=== PATIENT | male | born 1980 | race Caucasian/White ===

== ENCOUNTER 2020-09-30 13:09 | Emergency (ER) | payer BC ==
[~2020-09-30] VITALS: Ht 182.9 cm; Wt 71.6 kg
[2020-09-30 13:43] LABS: BASOPHILS % (AUTO) 0.2 % (0-1); EOSINOPHILS % (AUTO) 0 % (0-6); HEMATOCRIT 46.7 % (42.0-52.0); HEMOGLOBIN 15.8 g/dl (14.0-17.9); LYMPHOCYTES # (AUTO) 0.7 X10'3 (1.1-4.8); LYMPHOCYTES % (AUTO) 10.7 % (21-51); MEAN CORPUSCULAR HEMOGLOBIN 30.5 PG (27.0-31.0); MEAN CORPUSCULAR HGB CONC 33.9 g/dL (33.0-36.5); MEAN PLATELET VOLUME 7.7 FL (7.4-10.4); MONOCYTES # (AUTO) 0.5 X10'3 (0-0.9); NEUTROPHILS # (AUTO) 5.7 X10'3 (1.8-7.7); NEUTROPHILS % (AUTO) 82.1 % (42-75); PLATELET COUNT 256 X10'3 (140-440); RED BLOOD COUNT 5.18 X10'6 (4.70-6.10); RED CELL DISTRIBUTION WIDTH 12.6 % (11.5-14.5)
[2020-09-30 13:49] LABS: ALANINE AMINOTRANSFERASE 40 U/L (12-78); ALBUMIN 4.5 G/DL (3.4-5.0); ALBUMIN/GLOBULIN RATIO 1.2 (1.1-1.5); ALKALINE PHOSPHATASE 57 IU/L (46-116); ANION GAP 13 (8-16); ASPARTATE AMINO TRANSFERASE 32 U/L (10-37); BILIRUBIN,TOTAL 0.4 MG/DL (0.1-1.0); BLOOD UREA NITROGEN 16 MG/DL (7-18); BUN/CREATININE RATIO 13.8 (5.4-32.0); CALCIUM 9.1 MG/DL (8.5-10.1); CHLORIDE 103 MMOL/L (99-107); CREATININE 1.16 MG/DL (0.60-1.10); GLUCOSE 153 MG/DL (70-104); POTASSIUM 3.5 MMOL/L (3.5-5.1); SODIUM 140 MMOL/L (135-145); TOTAL CARBON DIOXIDE 24.5 MMOL/L (24-32); TOTAL PROTEIN 8.4 G/DL (6.4-8.2); eGFR 69 ML/MIN
[2020-09-30 14:50] VITALS: BP 124/93
== END 2020-09-30 14:55 | disposition home or self-care (01) ==
LOC: ER 13:10
DX: R07.89 Other chest pain (principal); E78.00 Pure hypercholesterolemia, unspecified; F41.9 Anxiety disorder, unspecified; Z72.89 Other problems related to lifestyle
CPT/HCPCS: 36415; 71045; 80053; 83880; 84484; 85025; 93005; 99285

== ENCOUNTER 2024-08-07 05:50 | Inpatient (IN) | payer BC ==
[2024-08-04 13:04] VITALS: PULSE 78; RESP 16; O2SAT 99
[2024-08-04 13:58] LABS: BASOPHILS % (AUTO) 0.3 % (0-1); EOSINOPHILS % (AUTO) 0.5 % (0-6); LYMPHOCYTES # (AUTO) 0.9 X10'3 (1.1-4.8); MEAN CORPUSCULAR HEMOGLOBIN 30.6 PG (27.0-31.0); MEAN CORPUSCULAR HGB CONC 34.5 g/dL (33.0-36.5); MEAN CORPUSCULAR VOLUME 88.9 FL (78-98); MEAN PLATELET VOLUME 7.3 FL (7.4-10.4); MONOCYTES # (AUTO) 0.4 X10'3 (0-0.9); MONOCYTES % (AUTO) 7.6 % (2-12); NEUTROPHILS # (AUTO) 4.2 X10'3 (1.8-7.7); NEUTROPHILS % (AUTO) 75.6 % (42-75); PRE OP HEMATOCRIT 46.5 % (42.0-52.0); PRE OP PLATELET COUNT 273 X10'3 (140-440); PRE OP WHITE BLOOD COUNT 5.5 10'3 (4.8-10.8); RED BLOOD COUNT 5.23 X10'6 (4.70-6.10); RED CELL DISTRIBUTION WIDTH 12.6 % (11.5-14.5)
[2024-08-04 14:01] LABS: BILIRUBIN,URINE NEGATIVE (Neg); CLARITY,URINE CLEAR (Clear); COLOR,URINE YELLOW (Yellow); GLUCOSE, URINE NEGATIVE (Neg); KETONES,URINE NEGATIVE (Neg); LEUKOCYTE ESTERASE ,URINE NEGATIVE (Neg); NITRITES, URINE NEGATIVE (Neg); OCCULT BLOOD,URINE NEGATIVE (Neg); PROTEIN,URINE NEGATIVE (Neg); UROBILINOGEN,URINE 0.2 E.U/dL (0.2-1.0)
[2024-08-04 14:06] LABS: UA COLLECTION TYPE NON-SPECIFIED
[2024-08-04 14:07] LABS: PRE OP PROTIME 10.7 SECONDS (9.0-12.0)
[2024-08-04 14:13] LABS: HEMOGLOBIN A1C 5.5 % (4.5-6.2)
[2024-08-04 14:15] LABS: ALBUMIN 4.4 G/DL (3.4-5.0); ALBUMIN/GLOBULIN RATIO 1.3 (1.1-1.5); ALKALINE PHOSPHATASE 45 IU/L (46-116); BLOOD UREA NITROGEN 22 MG/DL (7-18); BUN/CREATININE RATIO 19.8 (10.0-20.0); CALCIUM 9.3 MG/DL (8.5-10.1); CHLORIDE 102 MMOL/L (99-107); CREATININE 1.11 MG/DL (0.60-1.10); PRE OP ALT 28 U/L (30-65); PRE OP ANION GAP 7 (8-16); PRE OP AST 23 U/L (10-37); PRE OP BILIRUB, TOTAL 0.4 MG/DL (0.0-1.0); PRE OP GLUCOSE 99 MG/DL (70-104); PRE OP SODIUM 136 MMOL/L (135-145); TOTAL CARBON DIOXIDE 27.4 MMOL/L (24-32); TOTAL PROTEIN 7.8 G/DL (6.4-8.2); eGFR 71 ML/MIN
[2024-08-04 15:45] LABS: ABG BASE EXCESS -1.9 mmol/L (-2.0-3.0); ABG HCO3 20.9 mmol/L (21.0-28.0); ABG OXYGEN SATURATION 98.2 % (94.0-98.0); ABG PCO2 (T) 31.1 mmHg (35.0-48.0); ABG PH (T) 7.446 (7.350-7.450); ABG PO2 (T) 113.4 mmHg (83.0-108.0); ALLEN'S TEST POSITIVE; FCOHb 0.3 % (0.5-1.5); FHHb 1.8 % (0.0-5.0); FMetHb 0.1 % (0.0-1.5); FO2Hb 97.8 % (94.0-98.0); TOTAL HEMOGLOBIN 16.1 G/dl (13.5-17.5)
[2024-08-07] VITALS (23 sets, daily range): BP systolic 104–150; BP diastolic 56–89; PULSE 67–98; RESP 11–16; TEMP 98.2; O2SAT 96–100
[~2024-08-07] VITALS: Ht 182.9 cm; Wt 74.7 kg
[~2024-08-07 05:50] MED LIST: AZEL137S4 BOTHNARES; FLUT16SP BOTHNARES; HYDR-3686 PO; IVER3TAB PO; Insulin Reg/NS 100units/100mL 100 ML IV SCH; LORA10CA PO; METO25CA PO; OMEG100037 PO; TERB250T89 PO; ZINC30CA PO; [UNRECOGNIZED DRUG - CODE] PO; dextrose 50%-water 50ml dispensing syringe IV PRN; insulin glargine (Lantus) pen - multi-dose SQ PRN
[2024-08-07] MEDS ORDERED: epiNEPHrine 1 mg/ml inj ONE (06:46)
[2024-08-07] MEDS ORDERED: vancomycin 1,000mg inj ONE (06:46)
[2024-08-07] MEDS ORDERED: ceFAZolin 1000mg inj ONE (06:46)
[2024-08-07] MEDS: ceFAZolin 1000mg inj IR ONE (06:50)
[2024-08-07] MEDS: metoprolol tartrate 12.5mg (1/2 tablet) PO ONE (07:14)
[2024-08-07] MEDS: VANCOMYCIN/H2O 1.5g/300mL PB 300 ML IV ONE (07:15)
[2024-08-07] MEDS: mupirocin 2% nasal ointment 1gm UD NS ONE (07:15)
[2024-08-07] MEDS: DOCUMENT DATE & TIME OF BETA-BLOCKER PO ONE (07:15)
[2024-08-07] MEDS: ringers solution, lacted 1,000 ML IV SCH (07:15)
[2024-08-07] MEDS: famotidine 20mg tablet PO ONE (07:16)
[2024-08-07] MEDS: ceFAZolin 2gm in dextrose, iso 50 ML IV ONE (07:16)
[2024-08-07] MEDS ORDERED: propofol inj 20 ML IV ONE (08:03)
[2024-08-07] MEDS ORDERED: rocuronium 10mg/ml inj IV ONE ×2 (08:03)
[2024-08-07] MEDS ORDERED: MIDAZolam 1 MG/ML 5ML VIAL ONE (08:05)
[2024-08-07] MEDS ORDERED: SUfentanil 50mcg/ml 1ml amp IV ONE (08:07)
[2024-08-07] MEDS ORDERED: ePHEDrine 50MG/ML INJ. ONE (08:07)
[2024-08-07] MEDS ORDERED: sevoflurane 250ml liquid IH ONE (08:11)
[2024-08-07] MEDS: LORazepam 2 mg/ml vial IV PRN (08:11)
[2024-08-07 09:03] LABS: ABG BASE EXCESS -0.8 mmol/L (-2.0-3.0); ABG HCO3 21.2 mmol/L (21.0-28.0); ABG OXYGEN SATURATION 99.5 % (94.0-98.0); ABG PCO2 28.3 mmHg (35.0-48.0); ABG PH 7.493 (7.350-7.450); ABG PO2 338.9 mmHg (83.0-108.0); CL (ABG) 103 mmol/L (98-107); FCOHb 0.3 % (0.5-1.5); FHHb 0.5 % (0.0-5.0); FMetHb 0.2 % (0.0-1.5); GLUCOSE (ABG) 112 mg/dl (65-95); IONIZED CA (ABG) 1.15 mmol/L (1.15-1.33); K (ABG) 3.8 mmol/L (3.40-4.50); TOTAL HEMOGLOBIN 14.3 G/dl (13.5-17.5)
[2024-08-07 09:39] LABS: ABG BASE EXCESS VENOUS -0.8 mmol/L (-2.0-3.0); ABG HCO3 VENOUS 24.1 mmol/L (22.0-29.0); ABG OXYGEN SATURATION VENOUS 84.2 % (60.0-85.0); ABG PCO2 VENOUS 40.5 mmHg (38.0-54.0); ABG PH (VENOUS) 7.392 (7.320-7.430); ABG PO2 VENOUS 47.9 mmHg (23.0-48.0); CL (ABG) 99 mmol/L (98-107); FCOHb VENOUS 0.3 % (0.5-1.5); FHHb VENOUS 15.7 %; FMetHb VENOUS 0.1 % (0.5-1.5); FO2Hb VENOUS 83.9 % (0-80.0); GLUCOSE (ABG) 95 mg/dl (65-95); IONIZED CA (ABG) 0.96 mmol/L (1.15-1.33); K (ABG) 4.4 mmol/L (3.40-4.50); TOTAL HEMOGLOBIN 10.5 G/dl (13.5-17.5)
[2024-08-07 09:50] LABS: ABG BASE EXCESS -0.1 mmol/L (-2.0-3.0); ABG HCO3 24.4 mmol/L (21.0-28.0); ABG OXYGEN SATURATION 99.3 % (94.0-98.0); ABG PCO2 39.5 mmHg (35.0-48.0); ABG PH 7.409 (7.350-7.450); ABG PO2 424.8 mmHg (83.0-108.0); CL (ABG) 101 mmol/L (98-107); FCOHb 0.2 % (0.5-1.5); FHHb 0.7 % (0.0-5.0); FMetHb 0.3 % (0.0-1.5); FO2Hb 98.8 % (94.0-98.0); GLUCOSE (ABG) 97 mg/dl (65-95); K (ABG) 4.7 mmol/L (3.40-4.50)
[2024-08-07 10:17] LABS: ABG OXYGEN SATURATION 99.2 % (94.0-98.0); ABG PCO2 39.9 mmHg (35.0-48.0); ABG PH 7.378 (7.350-7.450); CL (ABG) 101 mmol/L (98-107); FCOHb 0.3 % (0.5-1.5); FHHb 0.8 % (0.0-5.0); FO2Hb 98.9 % (94.0-98.0); GLUCOSE (ABG) 136 mg/dl (65-95); IONIZED CA (ABG) 1.04 mmol/L (1.15-1.33); K (ABG) 4.4 mmol/L (3.40-4.50); TOTAL HEMOGLOBIN 11.8 G/dl (13.5-17.5)
[2024-08-07 10:45] LABS: ABG BASE EXCESS VENOUS -0.1 mmol/L (-2.0-3.0); ABG HCO3 VENOUS 24.8 mmol/L (22.0-29.0); ABG OXYGEN SATURATION VENOUS 85.2 % (60.0-85.0); ABG PCO2 VENOUS 41.3 mmHg (38.0-54.0); ABG PH (VENOUS) 7.396 (7.320-7.430); ABG PO2 VENOUS 49.8 mmHg (23.0-48.0); CL (ABG) 102 mmol/L (98-107); FCOHb VENOUS 0.3 % (0.5-1.5); FHHb VENOUS 14.7 %; FMetHb VENOUS 0.3 % (0.5-1.5); FO2Hb VENOUS 84.7 % (0-80.0); GLUCOSE (ABG) 137 mg/dl (65-95); IONIZED CA (ABG) 1.27 mmol/L (1.15-1.33); K (ABG) 4.4 mmol/L (3.40-4.50); TOTAL HEMOGLOBIN 11.3 G/dl (13.5-17.5)
[2024-08-07 10:48] LABS: ACTIVATED CLOTTING TIME 113 SEC (101-148)
[2024-08-07] MEDS ORDERED: Neutra Phos packet PO PRN (11:00)
[2024-08-07] MEDS ORDERED: potassium Cl 20 mEq SR tablet PO PRN (11:00)
[2024-08-07] MEDS ORDERED: insulin glargine (Lantus) pen - multi-dose SQ PRN (11:00)
[2024-08-07] MEDS ORDERED: magnesium sulf-water 2g/50mL 50 ML IV PRN (11:00)
[2024-08-07] MEDS ORDERED: dextrose 50%-water 50ml dispensing syringe IV PRN (11:00)
[2024-08-07] MEDS: Insulin Reg/NS 100units/100mL 100 ML IV SCH (11:00)
[2024-08-07] MEDS ORDERED: potassium Cl 20mEq/100mL bag 100 ML IV PRN (11:00)
[2024-08-07] MEDS ORDERED: sodium phosphate inj. 30 MMOL in dextrose 5%-water 250 ML IV PRN (11:00)
[2024-08-07] MEDS ORDERED: potassium CL 10mEq/100ml bag 100 ML IV PRN (11:00)
[2024-08-07] MEDS ORDERED: bisacodyl 10mg suppository rectal RC PRN (11:00)
[2024-08-07] MEDS ORDERED: sodium phosphate inj. 15 MMOL in dextrose 5%-water 250 ML IV PRN (11:00)
[2024-08-07] MEDS: sodium chloride 0.45% 1,000 ML IV SCH (11:00)
[2024-08-07] MEDS ORDERED: mineral oil 133ml enema RC PRN (11:00)
[2024-08-07] MEDS ORDERED: potassium Cl 40MEQ/270ML bag 250 ML IV PRN (11:00)
[2024-08-07] MEDS ORDERED: acetaminophen 325mg tablet PO PRN (11:00)
[2024-08-07] MEDS ORDERED: magnesium hydroxide 30ml (MOM) UD suspension PO PRN (11:00)
[2024-08-07] MEDS: niCARDipine-NS 40mg/200ml IVPB 200 ML IV PRN (11:38)
[2024-08-07] MEDS: morphine 2 MG/ML inj. syringe IV PRN (11:56)
[2024-08-07 12:21] LABS: BASOPHILS % (AUTO) 0.1 % (0-1); EOSINOPHILS % (AUTO) 0.3 % (0-6); HEMATOCRIT 39.1 % (42.0-52.0); HEMOGLOBIN 13.7 g/dl (14.0-17.9); LYMPHOCYTES # (AUTO) 0.5 X10'3 (1.1-4.8); LYMPHOCYTES % (AUTO) 4.1 % (21-51); MEAN CORPUSCULAR HEMOGLOBIN 31.2 PG (27.0-31.0); MEAN CORPUSCULAR HGB CONC 34.9 g/dL (33.0-36.5); MEAN CORPUSCULAR VOLUME 89.4 FL (78-98); MEAN PLATELET VOLUME 7.7 FL (7.4-10.4); MONOCYTES # (AUTO) 0.5 X10'3 (0-0.9); MONOCYTES % (AUTO) 4.9 % (2-12); NEUTROPHILS % (AUTO) 90.6 % (42-75); PLATELET COUNT 127 X10'3 (140-440); RED BLOOD COUNT 4.37 X10'6 (4.70-6.10); RED CELL DISTRIBUTION WIDTH 12.3 % (11.5-14.5)
[2024-08-07 12:25] LABS: ABG BASE EXCESS -4.6 mmol/L (-2.0-3.0); ABG HCO3 18.5 mmol/L (21.0-28.0); ABG OXYGEN SATURATION 99.9 % (94.0-98.0); ABG PCO2 (T) 28.2 mmHg (35.0-48.0); ABG PO2 (T) 339.3 mmHg (83.0-108.0); FCOHb 0.3 % (0.5-1.5); FHHb 0.1 % (0.0-5.0); FMetHb 0.1 % (0.0-1.5); FO2Hb 99.5 % (94.0-98.0); MODE VENT - SIMV; PATIENT TEMPERATURE 36.1; PEEP 5 cm H2O; RESPIRATORY RATE 14 b/min; TIDAL VOLUME 550 mL
[2024-08-07 12:34] LABS: APTT 25 SECONDS (22-32); INR 1.2 INR; PROTHROMBIN TIME 12.6 SECONDS (9.0-12.0)
[2024-08-07 12:40] LABS: ALANINE AMINOTRANSFERASE 24 U/L (12-78); ALBUMIN 3.3 G/DL (3.4-5.0); ALBUMIN/GLOBULIN RATIO 1.7 (1.1-1.5); ALKALINE PHOSPHATASE 28 IU/L (46-116); ANION GAP 10 (8-16); ASPARTATE AMINO TRANSFERASE 28 U/L (10-37); BILIRUBIN,TOTAL 0.5 MG/DL (0.1-1.0); BLOOD UREA NITROGEN 15 MG/DL (7-18); BUN/CREATININE RATIO 17.6 (10.0-20.0); CALCIUM 8.4 MG/DL (8.5-10.1); CHLORIDE 106 MMOL/L (99-107); CREATININE 0.85 MG/DL (0.60-1.10); GLUCOSE 127 MG/DL (70-104); POTASSIUM 4.2 MMOL/L (3.5-5.1); SODIUM 141 MMOL/L (135-145); TOTAL CARBON DIOXIDE 24.8 MMOL/L (24-32); TOTAL PROTEIN 5.3 G/DL (6.4-8.2); eCRCL 113 ML/MIN; eGFR > 90 ML/MIN
[2024-08-07 12:41] LABS: MAGNESIUM 2.8 MG/DL (1.5-2.4); PHOSPHORUS 2.5 MG/DL (2.3-4.5)
[2024-08-07] MEDS: ondansetron/PF 4mg/2ml inj IV PRN (13:32)
[2024-08-07] MEDS: ketorolac trometh 15mg/ml vial 15 MG/ML ML IV SCH (13:47)
[2024-08-07] MEDS: potassium Cl 40MEQ/1/2NS 520ml 520 ML IV PRN (13:59)
[2024-08-07] MEDS: albumin (Human) 5% 250ml 250 ML IV PRN (14:08)
[2024-08-07] MEDS: ceFAZolin/D5W- 1GM premix 50 ML IV SCH (15:54)
[2024-08-07] MEDS: HYDROcodone/acetaminophen 10/325mg tab PO PRN (15:55)
[2024-08-07] MEDS: metoclopramide 5 mg/ml inj IV PRN (17:21)
[2024-08-07] MEDS: morphine 4 MG/ML inj SYRINge IV PRN (17:31)
[2024-08-07 17:57] LABS: BASOPHILS % (AUTO) 0 % (0-1); EOSINOPHILS % (AUTO) 0 % (0-6); HEMATOCRIT 39.4 % (42.0-52.0); HEMOGLOBIN 13.3 g/dl (14.0-17.9); LYMPHOCYTES # (AUTO) 0.2 X10'3 (1.1-4.8); LYMPHOCYTES % (AUTO) 0.9 % (21-51); MEAN CORPUSCULAR HEMOGLOBIN 30.6 PG (27.0-31.0); MEAN CORPUSCULAR HGB CONC 33.8 g/dL (33.0-36.5); MEAN CORPUSCULAR VOLUME 90.7 FL (78-98); MEAN PLATELET VOLUME 7.5 FL (7.4-10.4); MONOCYTES % (AUTO) 5.1 % (2-12); NEUTROPHILS # (AUTO) 18.1 X10'3 (1.8-7.7); PLATELET COUNT 144 X10'3 (140-440); RED BLOOD COUNT 4.35 X10'6 (4.70-6.10); RED CELL DISTRIBUTION WIDTH 12.5 % (11.5-14.5); WHITE BLOOD COUNT 19.3 X10'3 (4.5-11.0)
[2024-08-07 18:11] LABS: ALBUMIN 3.7 G/DL (3.4-5.0); ANION GAP 11 (8-16); BLOOD UREA NITROGEN 17 MG/DL (7-18); BUN/CREATININE RATIO 14.7 (10.0-20.0); CALCIUM 7.8 MG/DL (8.5-10.1); CHLORIDE 111 MMOL/L (99-107); CREATININE 1.16 MG/DL (0.60-1.10); GLUCOSE 127 MG/DL (70-104); MAGNESIUM 2.2 MG/DL (1.5-2.4); POTASSIUM 4.2 MMOL/L (3.5-5.1); SODIUM 143 MMOL/L (135-145); TOTAL CARBON DIOXIDE 21.5 MMOL/L (24-32); eCRCL 83 ML/MIN; eGFR 68 ML/MIN
[2024-08-07] MEDS: atorvastatin 10mg tablet PO SCH (19:47)
[2024-08-07] MEDS: sennosides/docusate sodium tablet PO SCH (19:47)
[2024-08-07] MEDS: vancomycin/NS 1 GM ADD-VANTAGE 250 ML IV SCH (19:47)
[2024-08-07] MEDS: mupirocin 2% nasal ointment 1gm UD NS SCH (19:47)
[2024-08-08] VITALS (25 sets, daily range): BP systolic 91–168; BP diastolic 56–102; PULSE 80–116; RESP 11–18; TEMP 98.6; O2SAT 95–100
[2024-08-08 02:19] LABS: BASOPHILS % (AUTO) 0.3 % (0-1); EOSINOPHILS % (AUTO) 0 % (0-6); HEMATOCRIT 38.4 % (42.0-52.0); LYMPHOCYTES # (AUTO) 0.5 X10'3 (1.1-4.8); LYMPHOCYTES % (AUTO) 2.8 % (21-51); MEAN CORPUSCULAR HEMOGLOBIN 30.4 PG (27.0-31.0); MEAN CORPUSCULAR HGB CONC 33.8 g/dL (33.0-36.5); MEAN PLATELET VOLUME 7.7 FL (7.4-10.4); MONOCYTES # (AUTO) 1.3 X10'3 (0-0.9); NEUTROPHILS # (AUTO) 14.6 X10'3 (1.8-7.7); NEUTROPHILS % (AUTO) 88.9 % (42-75); PLATELET COUNT 139 X10'3 (140-440); RED BLOOD COUNT 4.27 X10'6 (4.70-6.10); RED CELL DISTRIBUTION WIDTH 12.4 % (11.5-14.5); WHITE BLOOD COUNT 16.4 X10'3 (4.5-11.0)
[2024-08-08 02:34] LABS: ALANINE AMINOTRANSFERASE 32 U/L (12-78); ALBUMIN 3.7 G/DL (3.4-5.0); ALBUMIN/GLOBULIN RATIO 1.6 (1.1-1.5); ALKALINE PHOSPHATASE 30 IU/L (46-116); ANION GAP 11 (8-16); ASPARTATE AMINO TRANSFERASE 44 U/L (10-37); BILIRUBIN,TOTAL 0.4 MG/DL (0.1-1.0); BLOOD UREA NITROGEN 16 MG/DL (7-18); BUN/CREATININE RATIO 16.7 (10.0-20.0); CALCIUM 7.9 MG/DL (8.5-10.1); CHLORIDE 107 MMOL/L (99-107); CREATININE 0.96 MG/DL (0.60-1.10); GLUCOSE 144 MG/DL (70-104); PHOSPHORUS 4.2 MG/DL (2.3-4.5); POTASSIUM 4.8 MMOL/L (3.5-5.1); SODIUM 140 MMOL/L (135-145); eCRCL 100 ML/MIN; eGFR 84 ML/MIN
[2024-08-08] MEDS: HYDROcodone/acetaminophen 10/325mg tab PO PRN (03:53)
[2024-08-08] MEDS: magnesium sulf-water 4G/100mL 100 ML IV PRN (04:59)
[2024-08-08] MEDS: loratadine 10mg tablet PO SCH (07:52)
[2024-08-08] MEDS: metoprolol tartrate 12.5mg (1/2 tablet) PO SCH (07:53)
[2024-08-08] MEDS: terbinafine 250mg tablet PO SCH (07:53)
[2024-08-08] MEDS: aspirin 81mg tab.chew PO SCH (07:54)
[2024-08-08] MEDS: hydrOXYzine 25 MG tablet PO PRN (20:17)
[2024-08-08] MEDS: warfarin 5mg tablet PO ONE (20:18)
[2024-08-08] MEDS: diphenhydrAMINE 25mg capsule PO ONE (21:55)
[2024-08-09] VITALS (19 sets, daily range): BP systolic 109–166; BP diastolic 67–86; PULSE 83–118; RESP 12–19; TEMP 97.1–97.9; O2SAT 95–100
[2024-08-09 04:00] LABS: BASOPHILS # (AUTO) 0.1 X10'3 (0-0.2); BASOPHILS % (AUTO) 0.3 % (0-1); EOSINOPHILS % (AUTO) 0 % (0-6); HEMOGLOBIN 12.9 g/dl (14.0-17.9); LYMPHOCYTES # (AUTO) 0.5 X10'3 (1.1-4.8); LYMPHOCYTES % (AUTO) 2.3 % (21-51); MEAN CORPUSCULAR HEMOGLOBIN 30.5 PG (27.0-31.0); MEAN CORPUSCULAR VOLUME 89.9 FL (78-98); MONOCYTES # (AUTO) 1.4 X10'3 (0-0.9); NEUTROPHILS # (AUTO) 17.6 X10'3 (1.8-7.7); NEUTROPHILS % (AUTO) 90.4 % (42-75); PLATELET COUNT 142 X10'3 (140-440); RED BLOOD COUNT 4.22 X10'6 (4.70-6.10); RED CELL DISTRIBUTION WIDTH 12.9 % (11.5-14.5); WHITE BLOOD COUNT 19.5 X10'3 (4.5-11.0)
[2024-08-09 04:14] LABS: ALBUMIN 3.6 G/DL (3.4-5.0); ANION GAP 6 (8-16); BLOOD UREA NITROGEN 16 MG/DL (7-18); CALCIUM 8.4 MG/DL (8.5-10.1); CHLORIDE 103 MMOL/L (99-107); CREATININE 1.07 MG/DL (0.60-1.10); GLUCOSE 173 MG/DL (70-104); PHOSPHORUS 2.2 MG/DL (2.3-4.5); POTASSIUM 4.6 MMOL/L (3.5-5.1); SODIUM 136 MMOL/L (135-145); TOTAL CARBON DIOXIDE 27.1 MMOL/L (24-32); eCRCL 94 ML/MIN; eGFR 74 ML/MIN
[2024-08-09] MEDS: pantoprazole 40mg Tablet.DR PO SCH (07:36)
[2024-08-09] MEDS ORDERED: potassium Cl 20 mEq SR tablet PO PRN ×2 (08:05)
[2024-08-09] MEDS ORDERED: potassium Cl 40MEQ/1/2NS 520ml 520 ML IV PRN (08:05)
[2024-08-09] MEDS ORDERED: potassium CL 10mEq/100ml bag 100 ML IV PRN (08:05)
[2024-08-09] MEDS ORDERED: magnesium sulf-water 2g/50mL 50 ML IV PRN (08:05)
[2024-08-09] MEDS ORDERED: potassium Cl 20mEq/100mL bag 100 ML IV PRN (08:05)
[2024-08-09] MEDS ORDERED: potassium Cl 40MEQ/270ML bag 250 ML IV PRN (08:05)
[2024-08-09] MEDS: metoprolol tartrate 25mg tablet PO SCH (08:18)
[2024-08-09] MEDS: acetaminophen 325mg tablet PO PRN (08:52)
[2024-08-09 13:38] LABS: PROTHROMBIN TIME 10.9 SECONDS (9.0-12.0)
[2024-08-09] MEDS: traZODone 50mg tablet PO SCH (20:04)
[2024-08-09] MEDS: magnesium Cl slow-release 64mg tablet PO SCH (20:04)
[2024-08-09] MEDS: hydrOXYzine 25 MG tablet PO ONE (21:20)
[2024-08-10 02:00] VITALS: BP 106/66; PULSE 80; RESP 17; TEMP 97.5; O2SAT 99
[2024-08-10 07:00] VITALS: BP 112/67; PULSE 79; RESP 17; TEMP 97.6; O2SAT 98
[2024-08-10 07:34] LABS: BASOPHILS % (AUTO) 0.2 % (0-1); EOSINOPHILS % (AUTO) 0.1 % (0-6); HEMATOCRIT 37.8 % (42.0-52.0); LYMPHOCYTES # (AUTO) 0.7 X10'3 (1.1-4.8); LYMPHOCYTES % (AUTO) 7.9 % (21-51); MEAN CORPUSCULAR HGB CONC 34.4 g/dL (33.0-36.5); MEAN CORPUSCULAR VOLUME 90.1 FL (78-98); MEAN PLATELET VOLUME 8.2 FL (7.4-10.4); MONOCYTES # (AUTO) 0.9 X10'3 (0-0.9); MONOCYTES % (AUTO) 9.6 % (2-12); NEUTROPHILS # (AUTO) 7.7 X10'3 (1.8-7.7); NEUTROPHILS % (AUTO) 82.2 % (42-75); PLATELET COUNT 123 X10'3 (140-440); RED BLOOD COUNT 4.19 X10'6 (4.70-6.10); RED CELL DISTRIBUTION WIDTH 12.3 % (11.5-14.5); WHITE BLOOD COUNT 9.3 X10'3 (4.5-11.0)
[2024-08-10 07:44] LABS: PROTHROMBIN TIME 10.9 SECONDS (9.0-12.0)
[2024-08-10 07:54] LABS: ALBUMIN 3.2 G/DL (3.4-5.0); ANION GAP 5 (8-16); BLOOD UREA NITROGEN 17 MG/DL (7-18); BUN/CREATININE RATIO 17.9 (10.0-20.0); CALCIUM 8.6 MG/DL (8.5-10.1); CHLORIDE 106 MMOL/L (99-107); CREATININE 0.95 MG/DL (0.60-1.10); GLUCOSE 108 MG/DL (70-104); MAGNESIUM 1.9 MG/DL (1.5-2.4); POTASSIUM 4.1 MMOL/L (3.5-5.1); SODIUM 140 MMOL/L (135-145); TOTAL CARBON DIOXIDE 29.3 MMOL/L (24-32); eCRCL 106 ML/MIN; eGFR 85 ML/MIN
[2024-08-10 08:00] VITALS: RESP 17
[2024-08-10] MEDS: LORazepam 0.5 MG tablet PO PRN (08:13)
[2024-08-10] MEDS: fluticasone nasal spray 16GM bottle NS PRN (10:07)
[2024-08-10] MEDS: warfarin 5mg tablet PO ONE (10:08)
[2024-08-10] MEDS: HYDROcodone/acetaminophen 5mg/325mg tablet PO PRN (16:20)
[2024-08-10 18:00] VITALS: BP 101/64; PULSE 82; RESP 19; TEMP 97.4; O2SAT 98
[2024-08-10 20:00] VITALS: RESP 19; O2SAT 98
[2024-08-10] MEDS: enoxaparin 40mg/0.4ml syringe SUBCUT SCH (21:08)
[2024-08-10 22:00] VITALS: BP 112/71; PULSE 81; RESP 17; TEMP 97.5; O2SAT 97
[2024-08-11] VITALS (7 sets, daily range): BP systolic 95–125; BP diastolic 54–87; PULSE 70–97; RESP 12–21; TEMP 97.2–98.1; O2SAT 97–100
[2024-08-11 08:09] LABS: EOSINOPHILS # (AUTO) 0.1 X10'3 (0-0.9); HEMOGLOBIN 11.6 g/dl (14.0-17.9); LYMPHOCYTES # (AUTO) 1.3 X10'3 (1.1-4.8); MONOCYTES # (AUTO) 0.8 X10'3 (0-0.9)
[2024-08-11 08:12] LABS: BASOPHILS % (AUTO) 0.5 % (0-1); EOSINOPHILS % (AUTO) 0.9 % (0-6); HEMATOCRIT 33.2 % (42.0-52.0); LYMPHOCYTES % (AUTO) 16.7 % (21-51); MEAN CORPUSCULAR HEMOGLOBIN 31.5 PG (27.0-31.0); MEAN CORPUSCULAR HGB CONC 35.1 g/dL (33.0-36.5); MEAN CORPUSCULAR VOLUME 89.8 FL (78-98); MEAN PLATELET VOLUME 8.9 FL (7.4-10.4); MONOCYTES % (AUTO) 10.3 % (2-12); NEUTROPHILS # (AUTO) 5.6 X10'3 (1.8-7.7); NEUTROPHILS % (AUTO) 71.6 % (42-75); PLATELET COUNT 118 X10'3 (140-440); RED CELL DISTRIBUTION WIDTH 12.6 % (11.5-14.5); WHITE BLOOD COUNT 7.8 X10'3 (4.5-11.0)
[2024-08-11 08:22] LABS: INR 1.1 INR; PROTHROMBIN TIME 11.4 SECONDS (9.0-12.0)
[2024-08-11 08:26] LABS: ALBUMIN 2.9 G/DL (3.4-5.0); ANION GAP 7 (8-16); BLOOD UREA NITROGEN 25 MG/DL (7-18); BUN/CREATININE RATIO 26.3 (10.0-20.0); CALCIUM 8.6 MG/DL (8.5-10.1); CHLORIDE 105 MMOL/L (99-107); CREATININE 0.95 MG/DL (0.60-1.10); GLUCOSE 99 MG/DL (70-104); MAGNESIUM 1.9 MG/DL (1.5-2.4); SODIUM 141 MMOL/L (135-145); TOTAL CARBON DIOXIDE 29.2 MMOL/L (24-32); eCRCL 106 ML/MIN; eGFR 85 ML/MIN
[2024-08-11 08:27] LABS: POTASSIUM 4.6 MMOL/L (3.5-5.1)
[2024-08-11] MEDS: warfarin 5mg tablet PO ONE (10:15)
[2024-08-11] MEDS ORDERED: ASPI81TA53 PO (11:38)
[2024-08-11] MEDS ORDERED: HYDR-3964 PO (11:39)
[2024-08-11] MEDS: azelastine Nasal Spray bottle NS PRN (19:13)
[2024-08-12] VITALS (8 sets, daily range): BP systolic 95–114; BP diastolic 50–75; PULSE 73–96; RESP 15–21; TEMP 97.4–98.6; O2SAT 98–100
[2024-08-12 06:19] LABS: BASOPHILS % (AUTO) 0.4 % (0-1); EOSINOPHILS # (AUTO) 0.1 X10'3 (0-0.9); EOSINOPHILS % (AUTO) 2.2 % (0-6); HEMATOCRIT 33.9 % (42.0-52.0); HEMOGLOBIN 11.9 g/dl (14.0-17.9); LYMPHOCYTES % (AUTO) 22.1 % (21-51); MEAN CORPUSCULAR HEMOGLOBIN 31.3 PG (27.0-31.0); MEAN CORPUSCULAR HGB CONC 35.1 g/dL (33.0-36.5); MEAN CORPUSCULAR VOLUME 89.1 FL (78-98); MEAN PLATELET VOLUME 7.7 FL (7.4-10.4); MONOCYTES # (AUTO) 0.5 X10'3 (0-0.9); MONOCYTES % (AUTO) 11.6 % (2-12); NEUTROPHILS % (AUTO) 63.7 % (42-75); PLATELET COUNT 178 X10'3 (140-440); RED BLOOD COUNT 3.81 X10'6 (4.70-6.10); RED CELL DISTRIBUTION WIDTH 12.6 % (11.5-14.5); WHITE BLOOD COUNT 4.7 X10'3 (4.5-11.0)
[2024-08-12 06:33] LABS: INR 1.2 INR; PROTHROMBIN TIME 12.6 SECONDS (9.0-12.0)
[2024-08-12 06:42] LABS: ANION GAP 2 (8-16); BLOOD UREA NITROGEN 23 MG/DL (7-18); BUN/CREATININE RATIO 22.1 (10.0-20.0); CHLORIDE 105 MMOL/L (99-107); CREATININE 1.04 MG/DL (0.60-1.10); GLUCOSE 104 MG/DL (70-104); POTASSIUM 4.5 MMOL/L (3.5-5.1); SODIUM 140 MMOL/L (135-145); TOTAL CARBON DIOXIDE 32.8 MMOL/L (24-32); eCRCL 97 ML/MIN; eGFR 77 ML/MIN
[2024-08-12] MEDS: magnesium sulf-water 4G/100mL 100 ML IV PRN (08:55)
[2024-08-12] MEDS: warfarin 7.5mg tablet PO ONE (21:22)
[2024-08-13] VITALS (8 sets, daily range): BP systolic 93–129; BP diastolic 57–83; PULSE 74–96; RESP 14–18; TEMP 97.5–99.3; O2SAT 98–100
[2024-08-13 06:32] LABS: INR 1.2 INR; PROTHROMBIN TIME 12.5 SECONDS (9.0-12.0)
[2024-08-13 06:37] LABS: ALBUMIN 3.1 G/DL (3.4-5.0); ANION GAP 4 (8-16); BLOOD UREA NITROGEN 24 MG/DL (7-18); BUN/CREATININE RATIO 21.8 (10.0-20.0); CALCIUM 8.7 MG/DL (8.5-10.1); CHLORIDE 103 MMOL/L (99-107); GLUCOSE 99 MG/DL (70-104); POTASSIUM 4.1 MMOL/L (3.5-5.1); SODIUM 139 MMOL/L (135-145); TOTAL CARBON DIOXIDE 31.8 MMOL/L (24-32); eCRCL 90 ML/MIN; eGFR 72 ML/MIN
[2024-08-13] MEDS: warfarin 7.5mg tablet PO ONE (21:20)
[2024-08-14] VITALS (7 sets, daily range): BP systolic 97–118; BP diastolic 61–76; PULSE 71–78; RESP 14–26; TEMP 97.2–98.6; O2SAT 96–100
[2024-08-14 08:02] LABS: INR 1.4 INR; PROTHROMBIN TIME 14.3 SECONDS (9.0-12.0)
[2024-08-14 08:15] LABS: ANION GAP 11 (8-16); BLOOD UREA NITROGEN 21 MG/DL (7-18); BUN/CREATININE RATIO 19.1 (10.0-20.0); CALCIUM 9.5 MG/DL (8.5-10.1); CHLORIDE 102 MMOL/L (99-107); GLUCOSE 101 MG/DL (70-104); POTASSIUM 3.9 MMOL/L (3.5-5.1); SODIUM 139 MMOL/L (135-145); TOTAL CARBON DIOXIDE 26.2 MMOL/L (24-32); eCRCL 86 ML/MIN; eGFR 72 ML/MIN
[2024-08-14] MEDS: warfarin 7.5mg tablet PO ONE (19:54)
[2024-08-15] VITALS (8 sets, daily range): BP systolic 97–118; BP diastolic 66–73; PULSE 69–83; RESP 14–18; TEMP 97–98.9; O2SAT 95–100
[2024-08-15 09:21] LABS: INR 1.7 INR
[2024-08-15 09:24] LABS: ALBUMIN 3.9 G/DL (3.4-5.0); ANION GAP 8 (8-16); BLOOD UREA NITROGEN 25 MG/DL (7-18); BUN/CREATININE RATIO 21.7 (10.0-20.0); CALCIUM 9.2 MG/DL (8.5-10.1); CHLORIDE 103 MMOL/L (99-107); CREATININE 1.15 MG/DL (0.60-1.10); GLUCOSE 90 MG/DL (70-104); POTASSIUM 3.8 MMOL/L (3.5-5.1); SODIUM 139 MMOL/L (135-145); TOTAL CARBON DIOXIDE 28.1 MMOL/L (24-32); eCRCL 82 ML/MIN; eGFR 68 ML/MIN
[2024-08-15 09:51] LABS: PROTHROMBIN TIME 16.7 SECONDS (9.0-12.0)
[2024-08-15] MEDS: warfarin 7.5mg tablet PO ONE (21:16)
[2024-08-16 02:00] VITALS: BP 94/50; PULSE 66; RESP 18; TEMP 97.8; O2SAT 100
[2024-08-16 06:32] LABS: ALBUMIN 3.2 G/DL (3.4-5.0); ANION GAP 5 (8-16); BLOOD UREA NITROGEN 23 MG/DL (7-18); BUN/CREATININE RATIO 22.1 (10.0-20.0); CALCIUM 8.8 MG/DL (8.5-10.1); CHLORIDE 106 MMOL/L (99-107); CREATININE 1.04 MG/DL (0.60-1.10); GLUCOSE 103 MG/DL (70-104); POTASSIUM 4.1 MMOL/L (3.5-5.1); SODIUM 139 MMOL/L (135-145); TOTAL CARBON DIOXIDE 27.6 MMOL/L (24-32); eCRCL 94 ML/MIN; eGFR 77 ML/MIN
[2024-08-16 06:36] LABS: INR 1.8 INR; PROTHROMBIN TIME 17.7 SECONDS (9.0-12.0)
[2024-08-16 08:00] VITALS: BP_SYST 86; PULSE 74; RESP 16; O2SAT 99
[2024-08-16] MEDS ORDERED: WARF7.5T48 PO (09:32)
[2024-08-16 11:18] VITALS: RESP 14
== END 2024-08-16 13:15 | disposition home or self-care (01) | DRG 221 ==
LOC: PAS IN 05:50 → CICU 2S 11:25 → PCU 3S 08-09 13:47
PROVIDERS: ADMIT Thoracic Surgery (Cardiothoracic Vascular Surgery); ATTEND Thoracic Surgery (Cardiothoracic Vascular Surgery)
PROC: 02RF08Z Replacement of Aortic Valve with Zooplastic Tissue, Open Approach (ICD-10-PCS; principal; 2024-08-08)
PROC: B24BZZ4 Ultrasonography of Heart with Aorta, Transesophageal (ICD-10-PCS; 2024-08-08)
PROC: 5A1221Z Performance of Cardiac Output, Continuous (ICD-10-PCS; 2024-08-08)
DX: I35.0 Nonrheumatic aortic (valve) stenosis (principal); F22 Delusional disorders; F32.A Depression, unspecified; G47.30 Sleep apnea, unspecified; F41.0 Panic disorder [episodic paroxysmal anxiety]; G47.00 Insomnia, unspecified; Z79.899 Other long term (current) drug therapy; Z79.01 Long term (current) use of anticoagulants
CPT/HCPCS: 93312; 93325; Z7506; Z7508; 36415; 36600; 71045; 71046; 80048; 80053; 81003; 82330; 82435; 82803; 82947; 82948; 83036; 83735; 84100; 84132; 84295; 85018; 85025; 85347; 85610; 85730; 86885; 86900; 86901; 86920; 87081; 93005; 93970; 94002; 94010; 94668; 94760; 97116; 97162; A4333; A4615; A4618; A6213; A6253; A6258; A6449; A7000; A7048; C1751; G0378; J0171; J0690; J1644; J1650; J1815; J1885; J2060; J2150; J2250; J2270; J2405; J2704; J2720; J2765; J2919; J3370; J3372; J3475; J3480; J3490; J7030; J7040; J7050; J7120; P9045; P9047; Q0163; Q0177

== ENCOUNTER 2024-09-20 14:27 | Outpatient (CLI) | payer BC ==
[~2024-09-20 14:27] MED LIST changes: +ASPI81TA53 PO; +HYDR-3964 PO; -Insulin Reg/NS 100units/100mL 100 ML IV SCH; +WARF7.5T48 PO; -dextrose 50%-water 50ml dispensing syringe IV PRN; -insulin glargine (Lantus) pen - multi-dose SQ PRN
== END 2024-09-20 23:59 | disposition home or self-care (01) ==
LOC: RAD 14:27
PROVIDERS: ATTEND Thoracic Surgery (Cardiothoracic Vascular Surgery)
DX: R07.9 Chest pain, unspecified (principal); I97.89 Other postprocedural complications and disorders of the circulatory system, not elsewhere classified; I47.19 Other supraventricular tachycardia
CPT/HCPCS: 71046